=== PATIENT | male | born 1995 | race Caucasian/White ===

== ENCOUNTER 2023-07-01 04:27 | Emergency (ER) | payer OTHER ==
[2023-07-01] MEDS ORDERED: CLINDAMYCIN 900MG/D5W 900 MG/50 ML IVPB IV ONE (04:38)
[2023-07-01] MEDS ORDERED: HYDROCODONE/APAP 10/325 TAB ONE (04:39)
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
[2023-07-01 11:22] VITALS: BP 132/84; TEMP 97.3; O2SAT 100
== END 2023-07-01 05:37 | disposition home or self-care (01) ==
LOC: ER 04:27
DX: S61.051A Open bite of right thumb without damage to nail, initial encounter (principal); L03.011 Cellulitis of right finger; Y04.1XXA Assault by human bite, initial encounter
CPT/HCPCS: 96365; 99284